=== PATIENT | female | born 1995 | race Caucasian/White ===

== ENCOUNTER 2017-06-16 20:40 | Emergency (ER) | payer OTHER ==
[2017-06-16 21:37] VITALS: BP 113/59
[2017-06-16] MEDS ORDERED: Nitrofurantoin Macrocrystals* 50 MG CAP PO ONE (21:45)
--- NOTE | 2017-06-16 21:45 | UC ---
Complaint Female HPI - HPI Summary HPI Summary: Urinary frequency, urgency, pain, cloudiness starting 3 days ago. Low back pain with malaise tonight. Denies fever or chills. No new sexual partners. Last tested for Gc/Chlamydia 1 year ago, no prior STI history. - History Of Current Complaint Chief Complaint: UCGU Stated Complaint: URINARY COMPLAINT Time Seen by Provider: 06/16/17 21:40 Hx Obtained From: Patient Hx Last Menstrual Period: 2 wks ago ?: No Onset/Duration: Gradual Onset, Lasting Days Timing: Constant Severity Initially: Mild Severity Currently: Moderate Character: Burning Aggravating Factor(s): Urination Alleviating Factor(s): Nothing Associated Signs And Symptoms: Negative: Fever, Back Pain, Vaginal Bleeding/ Discharge, Vomiting(# Of Episodes =) - Allergies/Home Medications Allergies/Adverse Reactions: Allergies Allergy/AdvReac Type Severity Reaction Status Date / Time No Known Allergies Allergy Verified 06/16/17 21:33 Home Medications: Home Medications Norethindr/Eth Estradiol(Nf) [Lo Loestrin Fe (NF)] 1 tab PO DAILY 06/16/17 [ History Confirmed 06/16/17] PMH/Surg Hx/FS Hx/Imm Hx - Surgical History Surgical History: Yes Surgery Procedure, Year, and Place: tonsillectomy - Social History Alcohol Use: None Substance Use Type: None Smoking Status (MU): Never Smoked Tobacco Review of Systems Constitutional: Negative Skin: Negative Eyes: Negative ENT: Negative Respiratory: Negative Cardiovascular: Negative Gastrointestinal: Negative Genitourinary: Dysuria, Frequency, Urgency Motor: Negative Neurovascular: Negative Musculoskeletal: Negative Neurological: Negative Psychological: Negative Is Patient Immunocompromised?: No All Other Systems Reviewed And Are Negative: Yes Physical Exam Triage Information Reviewed: Yes Appearance: Well-Appearing, No Pain Distress, Well-Nourished Vital Signs: Initial Vital Signs Temp 99.3 F 06/16/17 21:33 Pulse 75 06/16/17 21:33 Resp 16 06/16/17 21:33 BP 113/59 06/16/17 21:33 Pulse Ox 100 06/16/17 21:33 Vital Signs Reviewed: Yes Eye Exam: Normal, Other - PERRL Eyes: Positive: Conjunctiva Clear ENT Exam: Normal ENT: Positive: Normal ENT inspection, Hearing grossly normal, Pharynx normal, TMs normal Dental Exam: Normal Neck exam: Normal Respiratory Exam: Normal Respiratory: Positive: Chest non-tender, Lungs clear, Normal breath sounds, No respiratory distress, No accessory muscle use Cardiovascular Exam: Normal Cardiovascular: Positive: RRR, No Murmur Abdomen Description: Positive: No Organomegaly, Soft. Negative: CVA Tenderness (R), CVA Tenderness (L) Musculoskeletal Exam: Normal Neurological Exam: Normal Psychological Exam: Normal Skin Exam: Normal Complaint Female Dx - Differential Dx/Diagnosis Provider Diagnoses: UTI Discharge - Discharge Plan Condition: Stable Disposition: HOME
[2017-06-16] MEDS ORDERED: Phenazopyridine TAB* 100 MG PO ONE (21:46)
== END 2017-06-16 22:08 | disposition home or self-care (01) ==
LOC: UCCORT 20:40
DX: N39.0 Urinary tract infection, site not specified (principal); B96.4 Proteus (mirabilis) (morganii) as the cause of diseases classified elsewhere
CPT/HCPCS: 81003; 87077; 87086; 87186; 87491; 87591; 99202; A9270-GY; G0463

== ENCOUNTER 2017-06-21 11:16 | Emergency (ER) | payer OTHER ==
--- NOTE | 2017-06-21 11:50 | ED ---
GI/ HPI - HPI Summary HPI Summary: 22F presents with urgency, frequency, and dysuria for 3 days. She was seen her and prescribed macrobid. She was resistant to macrobid and did not answer her phone when a script was sent for cipro. She denies any nausea, vomiting, or flank pain. She denies any vaginal discharge. She denies any fevers. - History of Current Complaint Chief Complaint: UCGU Time Seen by Provider: 06/21/17 11:43 Stated Complaint: URINARY COMPLAINT Hx Last Menstrual Period: 3 wks ago - Allergy/Home Medications Allergies/Adverse Reactions: Allergies Allergy/AdvReac Type Severity Reaction Status Date / Time No Known Allergies Allergy Verified 06/21/17 11:33 Home Medications: Home Medications Nitrofurantoin Monohyd Macro [Macrobid] 100 mg PO BID 06/21/17 [History Confirmed 06/21/17] PMH/Surg Hx/FS Hx/Imm Hx Endocrine/Hematology History: Denies: Hx Anticoagulant Therapy Cardiovascular History: Denies: Hx Hypertension - Surgical History Surgery Procedure, Year, and Place: tonsillectomy Infectious Disease History: No Infectious Disease History: Denies: Traveled Outside the [place] in Last 30 Days - Family History Known Family History: Negative: Cardiac Disease - Social History Alcohol Use: None Substance Use Type: Reports: None Smoking Status (MU): Never Smoked Tobacco Review of Systems Negative: Fever Negative: Chest Pain Negative: Shortness Of Breath Negative: Abdominal Pain, Vomiting, Nausea Positive: dysuria, frequency. Negative: flank pain All Other Systems Reviewed And Are Negative: Yes Physical Exam Triage Information Reviewed: Yes Vital Signs On Initial Exam: Initial Vitals Temp Pulse Resp BP Pulse Ox 98.9 F 73 16 116/59 100 06/21/17 11:35 06/21/17 11:35 06/21/17 11:35 06/21/17 11:35 06/21/17 11:35 Vital Signs Reviewed: Yes Appearance: Positive: Well-Appearing Skin: Positive: Warm, Dry Head/Face: Positive: Normal Head/Face Inspection Eyes: Positive: EOMI, Conjunctiva Clear Respiratory/Lung Sounds: Positive: Clear to Auscultation, Breath Sounds Present Cardiovascular: Positive: Normal, RRR Abdomen Description: Positive: Nontender, Soft. Negative: CVA Tenderness (R), CVA Tenderness (L) Bowel Sounds: Positive: Present Musculoskeletal: Positive: Normal Neurological: Positive: Normal Psychiatric: Positive: Normal Diagnostics - Vital Signs Vital Signs Temp Pulse Resp BP Pulse Ox 06/21/17 11:35 98.9 F 73 16 116/59 100 - Laboratory Lab Statement: Any lab studies that have been ordered have been reviewed, and results considered in the medical decision making process. GIGU Course/Dx - Course Course Of Treatment: 22F presents with urgency, frequency, and dysuria for 3 days. She was seen her and prescribed macrobid. She was resistant to macrobid and did not answer her phone when a script was sent for cipro. She denies any nausea, vomiting, or flank pain. She denies any vaginal discharge. She denies any fevers. nontender abdomen, neg CVA tenderness. explained script already sent so did not get u/a but did get which is not . warned of signs of pyelo to go to ED for. medications reviewed. patient understands and agrees with plan. - Diagnoses Differential Diagnoses - Female: Pyelonephritis, Urinary Tract Infection, Ureteral Calculi Provider Diagnoses: UTI (urinary tract infection) Discharge - Discharge Plan Condition: Good Disposition: HOME Patient Education Materials: Urinary Tract Infection in Women (ED) Referrals: Non Staff,Doctor [Primary Care Provider] - Additional Instructions: Take cipro twice a day for 3 days Drink plenty of water Caution this medication may make control ineffective will on medication Return to ED if develop any flank pain or persistent vomiting or any new or worsening symptoms
[2017-06-21 12:14] VITALS: BP 116/59
== END 2017-06-21 12:05 | disposition home or self-care (01) ==
LOC: UCCORT 11:16
DX: N39.0 Urinary tract infection, site not specified (principal); Z32.02 Encounter for pregnancy test, result negative
CPT/HCPCS: 84702; 99211; G0463

== ENCOUNTER 2017-10-14 16:18 | Emergency (ER) | payer OTHER ==
[2017-10-14 17:09] VITALS: BP 127/62
--- NOTE | 2017-10-14 18:08 | UC ---
Throat Pain/Nasal Reinaldo HPI - HPI Summary HPI Summary: 22 y/o female presents to the urgent care c/o sinus pain and pressure with B/L ear clogged since . Pt went to the PCP and Rx Amoxicillin PO x 7 days. she finished ABX 10/06/2017. Symptoms improved for 1-2 days. Now it has worsen with a dry cough. Nasal congestion with green nasal discharge, CARR. Pt has Hx of deviated septum. Pt denies fever, SOB, chest pain, dizziness, abdominal pain, N/ V/D - History of Current Complaint Hx Obtained From: Patient Hx Last Menstrual Period: 3 weeks ago Onset/Duration: Gradual Onset, Lasting Weeks - 4 weeks, Still Present, Worse Since - past week Severity: Moderate Pain Intensity: 5 - CARR, B/L ear pain Pain Scale Used: 0-10 Numeric Cough: Nonproductive Associated Signs & Symptoms: Positive: Sinus Discomfort, Nasal Discharge - Epiglottits Risk Factors Epiglottis Risk Factors: Negative <Betzy Desai - Last Filed: 10/16/17 12:56> <Dulce Figueroa - Last Filed: 10/17/17 09:39> - History of Current Complaint Chief Complaint: UCRespiratory Stated Complaint: SINUSES Time Seen by Provider: 10/14/17 18:03 - Allergies/Home Medications Allergies/Adverse Reactions: Allergies Allergy/AdvReac Type Severity Reaction Status Date / Time No Known Allergies Allergy Verified 10/14/17 17:02 PMH/Surg Hx/FS Hx/Imm Hx Previously Healthy: Yes - Pt denies PMHX Other History Of: Negative For: Anticoagulant Therapy - Surgical History Surgical History: Yes Surgery Procedure, Year, and Place: tonsillectomy - Family History Known Family History: Positive: None - Pt denies FMHX Negative: Cardiac Disease - Social History Occupation: Student Lives: With Family Alcohol Use: Rare Substance Use Type: None Smoking Status (MU): Never Smoked Tobacco - Immunization History Most Recent Influenza Vaccination: no 2016 <Betzy Desai - Last Filed: 10/16/17 12:56> Review of Systems Constitutional: Negative Skin: Negative Eyes: Negative ENT: Ear Ache - B/L ear pressure, Nasal Discharge, Sinus Congestion, Sinus Pain/ Tenderness Respiratory: Cough - dry Cardiovascular: Negative Gastrointestinal: Negative Genitourinary: Negative Motor: Negative Neurovascular: Negative Musculoskeletal: Negative Neurological: Headache Psychological: Negative Is Patient Immunocompromised?: No All Other Systems Reviewed And Are Negative: Yes <Betzy Desai - Last Filed: 10/16/17 12:56> Physical Exam Triage Information Reviewed: Yes Vital Signs: Initial Vital Signs Temp 99 F 10/14/17 17:03 Pulse 78 10/14/17 17:03 Resp 16 10/14/17 17:03 BP 127/62 10/14/17 17:03 Pulse Ox 100 10/14/17 17:03 - Additional Comments Vitals: reviewed General: Well developed, well-nourished female patient with NAD. Head and face: Normocephalic and atraumatic, Positive tenderness over the frontal and maxillary sinuses.. Eyes: PERRLA, EOMI x 2. Normal conjunctiva. No eye discharge. ENT: Ears and TM with normal limits. Nose: Septum deviation to the left side, moderate edematous and erythematous nasal mucosa with yellowish nasal discharge, +PND. Pharynx with erythema, no exudate. Neck: Supple, no JVD, no carotid bruits and no lymphadenopathy. Lungs: clear, no rales, no rhonchi, no wheezes. CVS: RRR, S1 and S2 present no murmurs or gallops appreciated. Abdomen: soft nontender with positive bowel sounds. Extremities: no edema noted. Neuro: WNL. Skin: warm and dry <Betzy Desai - Last Filed: 10/16/17 12:56> Vital Signs: Initial Vital Signs Temp 99 F 10/14/17 17:03 Pulse 78 10/14/17 17:03 Resp 16 10/14/17 17:03 BP 127/62 10/14/17 17:03 Pulse Ox 100 10/14/17 17:03 <Dulce Figueroa - Last Filed: 10/17/17 09:39> Throat Pain/Nasal Course/Dx - Course Course Of Treatment: 22 y/o female presents to the urgent care c/o sinus pain and pressure with B/L ear clogged since . Pt went to the PCP and Rx Amoxicillin PO x 7 days. she finished ABX 10/06/2017. Symptoms improved for 1-2 days. Now it has worsen with a dry cough. Nasal congestion with green nasal discharge, CARR. Pt has Hx of deviated septum. Pt denies fever, SOB, chest pain, dizziness, abdominal pain, N/V/D. Hx obtained. Pt with 3 weeks of symptoms getting worse. Pt Rx Augmentin PO, Loratadine PO and flonase nasal spray. Discharge instructions explained to Pt. Advised to Return to the clinic or PCP if symptoms do not improve.Pt understood and agreed with plan of care. - Differential Dx/Diagnosis Differential Diagnosis/HQI/PQRI: Influenza, Laryngitis, Pharyngitis, Sinusitis, Tonsillitis, URI Provider Diagnoses: 1- Acute bacterial sinusitis <Betzy Desai - Last Filed: 10/16/17 12:56> Discharge <Betzy Desai - Last Filed: 10/16/17 12:56> <Dulce Figueroa - Last Filed: 10/17/17 09:39> - Discharge Plan Condition: Stable Disposition: HOME Prescriptions: Amoxicillin/Clavulanate TAB* [Augmentin TAB 875*] 875 mg PO BID #20 tab Fluticasone NASAL SPRAY 50MCG* [Flonase NASAL SPRAY 50MCG*] 2 spray BOTH NARES DAILY #1 btl Loratadine & Pseudoephedrine [Loratadine-D 12Hr] 1 tab PO BID #20 tab Patient Education Materials: Sinusitis (ED) Referrals: [facility] [Outside] - 3 Days Alfa Lentz MD [Medical Doctor] - If Needed Additional Instructions: 1- Please increase fluid intake and rest. take full course of antibiotic to avoid resistance 2-Use Flonase as directed to help drain fluid. Also buy saline drops to clear sinuses 3-Take Claritin PO to alleviates sinus congestion 4-Return to the clinic or PCP if symptoms do not improve for further management and treatment Attestation Statement User Type: Provider - I was available for consult. This patient was seen by the YOLIE. The patient was not presented to, seen by, or examined by me. -Bear <Dulce Figueroa - Last Filed: 10/17/17 09:39>
== END 2017-10-14 18:27 | disposition home or self-care (01) ==
LOC: UCCORT 16:18
DX: J01.90 Acute sinusitis, unspecified (principal)
CPT/HCPCS: 99212; G0463